=== PATIENT | female | born 1995 | race Two or more races ===

== ENCOUNTER 2018-08-22 22:14 | Outpatient (CLI) | payer OTHER | END 2018-08-23 12:10 | disposition home or self-care (01) | LOC: OBS/DEL 22:14 | DX: O60.03 Preterm labor without delivery, third trimester (principal); Z34.03 Encounter for supervision of normal first pregnancy, third trimester ==

== ENCOUNTER 2018-09-23 10:45 | Inpatient (IN) | payer OTHER ==
[~2018-09-23] VITALS: Ht 160 cm; Wt 3.2 kg
[2018-09-26] MEDS ORDERED: PRENATAL TABLE1 EAC1 PO (09:32)
== END 2018-10-28 13:31 | disposition home or self-care (01) | DRG 787 ==
LOC: LDR 09-30 15:00 → OB/GYN 10-24 14:47 → LDR 10-24 14:47 → OB/GYN 10-25 13:15
PROVIDERS: ADMIT Specialist
PROC: 10907ZC Drainage of Amniotic Fluid, Therapeutic from Products of Conception, Via Natural or Artificial Opening (ICD-10-PCS; 2018-10-24)
PROC: 3E0P7VZ Introduction of Hormone into Female Reproductive, Via Natural or Artificial Opening (ICD-10-PCS; 2018-10-24)
PROC: 4A1HXCZ Monitoring of Products of Conception, Cardiac Rate, External Approach (ICD-10-PCS; 2018-10-24)
PROC: 3E033VJ Introduction of Other Hormone into Peripheral Vein, Percutaneous Approach (ICD-10-PCS; 2018-10-25)
PROC: 10D00Z1 Extraction of Products of Conception, Low, Open Approach (ICD-10-PCS; principal; 2018-10-25 12:00)
PROC: 4A033R1 Measurement of Arterial Saturation, Peripheral, Percutaneous Approach (ICD-10-PCS; 2018-10-26)
PROC: 8E0ZXY6 Isolation (ICD-10-PCS; 2018-10-26)
PROC: 3E0F7GC Introduction of Other Therapeutic Substance into Respiratory Tract, Via Natural or Artificial Opening (ICD-10-PCS; 2018-10-27)
DX: O82 Encounter for cesarean delivery without indication (principal); J45.31 Mild persistent asthma with (acute) exacerbation; O98.83 Other maternal infectious and parasitic diseases complicating the puerperium; O61.0 Failed medical induction of labor; O65.4 Obstructed labor due to fetopelvic disproportion, unspecified; Z3A.39 39 weeks gestation of pregnancy; Z37.0 Single live birth; O90.89 Other complications of the puerperium, not elsewhere classified; J10.1 Influenza due to other identified influenza virus with other respiratory manifestations; B96.1 Klebsiella pneumoniae [K. pneumoniae] as the cause of diseases classified elsewhere

== ENCOUNTER 2018-09-26 12:40 | Outpatient (CLI) | payer OTHER ==
[~2018-09-26] VITALS: Ht 160 cm; Wt 110.7 kg
[~2018-09-26 12:40] MED LIST: PRENATAL TABLE1 EAC1 PO
== END 2018-09-26 15:02 | disposition home or self-care (01) ==
LOC: OBS/DEL 12:40 → LDR 12:40 → OBS/DEL 15:02
DX: O60.03 Preterm labor without delivery, third trimester (principal); Z34.03 Encounter for supervision of normal first pregnancy, third trimester; O35.8XX0 Maternal care for other (suspected) fetal abnormality and damage, not applicable or unspecified

== ENCOUNTER → 2018-10-04 | Outpatient (CLI) | payer OTHER | END | disposition home or self-care (01) | LOC: NST 12:08 | DX: O36.8191 Decreased fetal movements, unspecified trimester, fetus 1 (principal) ==

== ENCOUNTER 2018-10-15 09:48 | Outpatient (CLI) | payer OTHER | END 2018-10-15 10:36 | disposition home or self-care (01) | LOC: NST 09:48 | DX: Z34.83 Encounter for supervision of other normal pregnancy, third trimester (principal) ==

== ENCOUNTER 2020-03-09 12:00 | Inpatient (IN) | payer OTHER ==
[~2020-03-09] VITALS: Ht 160 cm; Wt 90.7 kg
== END 2020-03-15 14:53 | disposition home or self-care (01) | DRG 786 ==
LOC: EDSTATUS 12:00 → ADM 12:00 → OB/GYN 03-12 09:19 → LDR 03-12 09:19 → OB/GYN 03-12 12:00
PROVIDERS: ADMIT Specialist; ATTEND Specialist
PROC: 4A1HXFZ Monitoring of Products of Conception, Cardiac Rhythm, External Approach (ICD-10-PCS; 2020-03-12)
PROC: 10D00Z1 Extraction of Products of Conception, Low, Open Approach (ICD-10-PCS; principal; 2020-03-12 07:30)
DX: O98.52 Other viral diseases complicating childbirth (principal); U07.1 COVID-19; O34.219 Maternal care for unspecified type scar from previous cesarean delivery; O99.214 Obesity complicating childbirth; E66.9 Obesity, unspecified; Z3A.39 39 weeks gestation of pregnancy; Z37.0 Single live birth